=== PATIENT | female | born 1990 | race Caucasian/White ===

== ENCOUNTER 2017-09-20 22:55 | Emergency (ER) | payer MEDICAID ==
[~2017-09-20] VITALS: Ht 165.1 cm; Wt 52.2 kg
[2017-09-20 22:55] VITALS: BP 139/62
[2017-09-21] MEDS ORDERED: ACETAMINOPHEN ES 500 MG TABLET ONE (01:45)
[2017-09-21] MEDS ORDERED: ONDANSETRON 4 MG TAB.RAPDIS ONE (01:49)
[2017-09-21] MEDS ORDERED: ACETAMINOPHEN 325 MG TABLET PO ONE (02:00)
== END 2017-09-21 01:48 | disposition home or self-care (01) ==
LOC: ER 22:59
DX: S09.90XA Unspecified injury of head, initial encounter (principal); Z88.8 Allergy status to other drugs, medicaments and biological substances; W22.8XXA Striking against or struck by other objects, initial encounter; Y93.89 Activity, other specified; Y92.89 Other specified places as the place of occurrence of the external cause; Y99.8 Other external cause status
CPT/HCPCS: 99282; Q0162